=== PATIENT | female | born 1980 | race Caucasian/White ===

== ENCOUNTER 2019-05-15 10:00 | Emergency (ER) | payer MEDICAID ==
[~2019-05-15] VITALS: Ht 170.2 cm; Wt 60.9 kg
--- NOTE | 2019-05-15 10:27 | NUR ---
PT PRESENTS TO ED WITH C/O HEADACHE, ALL OVER BODY PAIN, BLURRED VISION, AND N/V PRESENT SINCE LUMBAR PUNCTURE 5 DAYS AGO AT [facility]. PT A&OX4, RESPS EVEN AND UNLABORED, ANXIOUS AND TEARFUL. FRIEND AT BEDSIDE. JOSE PARKINSON AT BEDSIDE FOR INITIAL ASSESSMENT.
[2019-05-15] MEDS ORDERED: ONDANSETRON 2MG/ML, 2ML IVPush ONE (11:00)
[2019-05-15] MEDS ORDERED: SODIUM CHLORIDE FLUSH 10ML SYR IVF ONE (11:00)
[2019-05-15 11:15] LABS: MEAN CORPUSCULAR HEMOGLOBIN 30.2 pg (27.0-34.8); MEAN CORPUSCULAR HGB CONC 33.6 g/dL (32.4-35.8); MEAN CORPUSCULAR VOLUME 89.9 fL (80-100); MEAN PLATELET VOLUME 7.5 fL (7.4-10.4); PLATELET COUNT 234 x10^3/uL (130-400); RED BLOOD COUNT 4.91 x10^6/uL (3.82-5.3); RED CELL DISTRIBUTION WIDTH 13.9 % (9.6-15.2)
[2019-05-15] MEDS ORDERED: ONDANSETRON 2MG/ML, 2ML ONE (11:18)
[2019-05-15] MEDS ORDERED: MORPHINE SULFATE 4 MG/ML, 1ML ONE ×2 (11:18→12:58)
[2019-05-15] MEDS: MORPHINE SULFATE 4 MG/ML, 1ML IVPush PRN ×2 (11:21→13:05)
[2019-05-15 11:22] LABS: ALBUMIN 3.8 g/dL (3.4-5.0); ANION GAP 5 mmol/L (5-15); CALCIUM 9.8 mg/dL (8.5-10.1); CHLORIDE 106 mmol/L (98-107); CREATININE 0.83 mg/dL (0.55-1.02)
--- NOTE | 2019-05-15 11:22 | NUR ---
FLOAT NURSE: Patient medicated per aug. rights verified prior.
--- NOTE | 2019-05-15 11:28 | NUR ---
report given to break RN Jeremie.
[2019-05-15 11:30] LABS: MD YES
[2019-05-15 11:32] LABS: <PLATELET ESTIMATE> ADEQUATE; <PLT MORPHOLOGY> NORMAL PLT MORPH; <RBC MORPHOLOGY> NORMAL; BANDS%(MANUAL) 2 % (0-7); BASOS#(MANUAL) 0.05 x10^3/uL (0-0.1); BASOS% (MANUAL) 1 % (0-1); EOS#(MANUAL) 0.34 x10^3/uL (0.0-0.4); EOS% (MANUAL) 7 % (1-7); LYMPH#(MANUAL) 1.06 x10^3/uL (1-3.4); LYMPHS% (MANUAL) 22 % (22-44); MONOS#(MANUAL) 0.29 x10^3/uL (0.3-2.7); MONOS% (MANUAL) 6 % (2-9); REACTIVE LYMPHS % (MANUAL) 2 % (0-0); SEG#(MANUAL) 2.88 x10^3/uL (1.8-6.8); SEGS% (MANUAL) 60 % (42-75)
[2019-05-15] MEDS ORDERED: GADOTERATE 7.5 MMOL/15 ML SYR ONE (11:59)
--- NOTE | 2019-05-15 12:13 | NUR ---
FLOAT NURSE: PT BACK FROM MRI.
--- NOTE | 2019-05-15 12:30 | NUR ---
pt resting on gurney, pt a&o, resps even and unlabored. pt reports pain improved s/p morphine. bp and spo2 monitors in place, pt is wearing mask. awaiting labwork and dispo at this time.
--- NOTE | 2019-05-15 12:30 | NUR ---
LATE ENTRY D/T [facility]. NO RECORDS RECEIVED YET FROM [facility], FAX RECEIVAL RECEPT RECEIVED. UC CALLED [facility] TO CHECK ON STATUS. PT AWAITING [facility] RECORDS AND DISPO.
--- NOTE | 2019-05-15 13:16 | NUR ---
PT STATES GENERALIZED PAIN RETURNING, LEVEL 7/10, ERP GRAUSZ NOTIFIED. MRI RESULTS REVEIWED WITH ERP. PT MEDICATED WITH SECOND DOSE MORPHINE PER EMAR, TOLERATED WELL. PT IS A&O, NEURO INTACT, RESPS EVEN AND UNLABORED. BP AND SPO2 MONITORS IN PLACE, CALL LIGHT IN REACH ; AWAITING RECORDS FROM [facility] AND DISPO.
[2019-05-15 13:17] LABS: HCT (SEDRATE) 44.2 % (34.6-47.8)
--- NOTE | 2019-05-15 13:20 | NUR ---
PT REPORTS PAIN IMPROVED S/P MORPHINE, PT A&O, RESPS EVEN AND UNLABORED, NADN. RECORDS RECEIVED FROM [facility] AND HANDED TO JOSE PARKINSON FOR REVIEW.
--- NOTE | 2019-05-15 14:07 | NUR ---
JOSE PARKINSON AT BEDSIDE TO UPDATE PT WITH RESULTS AND POC.
[2019-05-15 14:43] VITALS: BP 109/73
--- NOTE | 2019-05-15 14:45 | NUR ---
REPORT GIVEN TO THAD RIVERA.
--- NOTE | 2019-05-15 14:54 | NUR ---
Received report from THAD Santos. All questions answered. Pt d/c at this time. Patient given discharge instructions and they have confirmed that they understand the instructions. Patient ambulatory with steady gait. Addendum: 05/15/19 at 1455 by [facility] Pt pushed in wheelchair from ED room to triage. Pt left with all personal belongings, Rx, and D/C paperwork.
== END 2019-05-15 15:02 | disposition home or self-care (01) ==
LOC: ED 10:40
DX: R51 Headache (principal); Z88.0 Allergy status to penicillin
CPT/HCPCS: 36415; 72158; 80048; 82040; 85025; 85651; 86140; 96374; 96375; 96376; 99284; A9575; J2270; J2405